=== PATIENT | female | born 1970 | race Hispanic/Latino ===

== ENCOUNTER → 2018-11-08 | Day surgery (SDC) | payer BC ==
[2018-11-06 16:19] LABS: BASOPHILS % 0.4 % (0.0-1.0); EOSINOPHILS # (AUTO) 0.1 (0.0-0.4); EOSINOPHILS % 1.1 % (0.0-6.0); HEMATOCRIT 43.3 % (34.2-44.1); HEMOGLOBIN 14.1 g/dL (12.0-16.0); LYMPHOCYTES # (AUTO) 1.8 (1.0-3.2); LYMPHOCYTES % 21.2 % (18.0-39.1); MEAN CORPUSCULAR HEMOGLOBIN 30.8 pg (28-32); MEAN CORPUSCULAR HGB CONC 32.6 g/dL (31-35); MEAN CORPUSCULAR VOLUME 94.5 fL (81-99); MONOCYTES # (AUTO) 0.5 (0.2-0.8); MONOCYTES % 6.3 % (4.4-11.3); NEUTROPHILS % 70.8 % (38.7-80.0); PLATELET COUNT 311 x10e3/uL (140-360); RED BLOOD COUNT 4.58 x10e6/uL (3.6-5.1); RED CELL DISTRIBUTION WIDTH 12.6 % (11.7-14.4)
--- NOTE | 2018-11-06 16:45 | Diagnostic Imaging Report ---
Frontal and lateral views of the chest. HISTORY: Preop, bilateral foot surgery COMPARISON: None available. DISCUSSION: Lungs: The lungs are well inflated. No evidence of a consolidative pneumonia or pulmonary alveolar edema. Pleura: No pleural effusion or pneumothorax. Heart and mediastinum: The cardiomediastinal silhouette appears unremarkable. Bones and soft tissues: Appear unremarkable. IMPRESSION: No acute radiographic abnormality. Signed by: Dr. Lucian Dave D.O., M.M.M. on 11/06/2018 4:41 PM
[~2018-11-08] MED LIST: BACITRACIN 50,000 UNIT VIAL ONE; BUPIVACAINE 0.25% 30ML SDV INJ ONE; DEXAMETHASONE SOD PHOS INJ 4 MG/ML VIAL ONE; FENTANYL CITRATE/PF 100MCG/2 ML INJ ONE; KETOROLAC TROMETHAMINE 30 MG/ML VIAL ONE; LIDOCAINE HCL 2% LOCAL INJ 5 ML SDV VIAL INJ ONE; MIDAZOLAM HCL 2 MG/2 ML VIAL ONE; MULTIVITAMINS1 EAC7 PO; MUPIROCIN 2% OINT 22 GM TUBE ONE; ONDANSETRON HCL INJ 2MG/ML 2ML 2 MG/ML VIAL ONE; PROPOFOL IV EMULSION 10 MG/ML 20 ML VIAL ONE; SEVOFLURANE INHAL SOLN 250 ML PEN BTL ONE; VANCOMYCIN 1GM/NS 250 ML 250 ML ONE; VESICARE5 MG PO
--- OUTSIDE RECORDS SUMMARY | 2018-11-08 05:04 | XMS REPORT | Continuity of Care Document ---
Demographics Preferred Language Unknown Marital Status Unknown Oriental Orthodox Affiliation Unknown Race Unknown Ethnic Group Unknown Author Author [facility] Organization Interface Address Unknown Phone Unavailable Problems Problem Status Onset Date Classification Date Reported Comments Source Z12.12 - ENCOUNTER FOR SCREENING FOR MA Active 09/13/2017 [facility] Final: Encounter for screening mammogram for malignant neoplasm of breast 09/25/2017 [facility] Medications Medication Details Route Status Patient Instructions Ordering Provider Order Date Source Allergies, Adverse Reactions, Alerts Substance Category Reaction Severity Reaction type Status Date Reported Comments Source Immunizations Immunization Date Given Site Status Last Updated Comments Source Results Order Name Results Value Reference Range Date Interpretation Comments Source Breast Mammo Scrn DIANA incl CAD MA Breast Mammo Scrn DIANA incl CAD MA BILATERAL DIGITAL SCREENING MAMMOGRAM WITH CAD: 09/22/2017 CLINICAL: /Screening. Current study was evaluated with a Computer Aided Detection (CAD) system. COMPARISON:Comparison is made to exams dated: 10/27/2015 ultrasound, 10/27/2015 mammogram, 08/15/2015 mammogram, 07/24/2014 mammogram, 07/26/2013 ultrasound, and 07/26/2013 mammogram - [facility]. TECHNIQUE: Mammographic views were obtained using digital acquisition. Current study was also evaluated with a Computer Aided Detection (CAD) system. FINDINGS: There are scattered fibroglandular densities in both breasts. There are benign calcifications in the right breast. There also are benign calcifications and intramammary nodes in the left breast. Additionally, there is a biopsy clip in the right breast. No significant masses, calcifications, or other findings are seen in either breast. There has been no significant interval change. IMPRESSION: BENIGN RECOMMENDATION:There is no mammographic evidence of malignancy. A 1 year screening mammogram is recommended.(09/23/2018) This exam was interpreted at [id number] for [facility]. Uche Mandujano M.D. bf/penrad:09/22/2017 15:13:52 Industrial Energy Engineer(s): Renata Ndiaye, [facility] letter sent: BI-RADS 1/2 Mammogram BI-RADS: 2 Benign 09/22/2017 - - Read by: Uche Mandujano MD Dictated Date/time: 09/22/17 15:13 Electronically Signed by: Uche Mandujano MD 09/22/17 15:13 FINAL REPORT [facility] Vital Signs Vital Sign Value Date Comments Source Encounters Location Location Details Encounter Type Encounter Number Reason For Visit Attending Provider ADM Date DC Date Status Source [facility] Outpatient Imaging - [facility] [id number] Non Physician 09/22/2017 09/23/2017 [facility] Jose [facility] Procedure Code Date Perfomer Comments Source
--- OUTSIDE RECORDS SUMMARY | 2018-11-08 05:04 | XMS REPORT | Summary of Care ---
Author Author [facility] Outpatient Imaging [facility] Outpatient [facility] Address Unknown Phone Unavailable Encounter HQ Esther(FIN) [id number] Date(s): 09/22/17 - 09/22/17 [facility] [address] [place] [address] [phone] Final: Encounter for screening mammogram for malignant neoplasm of breast Discharge Disposition: Home or Self Care Attending Physician: Physician, Non Associated MD Referring Physician: Physician, Non Associated MD Vital Signs No data available for this section Problem List No data available for this section Allergies, Adverse Reactions, Alerts No data available for this section Medications No data available for this section Results No data available for this section Immunizations No data available for this section Procedures No data available for this section Social History No data available for this section Assessment and Plan No data available for this section
--- OUTSIDE RECORDS SUMMARY | 2018-11-08 05:04 | XMS REPORT ---
Author Author [facility] Address Unknown Phone Unavailable Care Team Providers Care Vacuum Frame Operator Name Role Phone Hayley OLVERA Unavailable Unavailable Problems This patient has no known problems. Allergies, Adverse Reactions, Alerts This patient has no known allergies or adverse reactions. Medications This patient has no known medications. Results Test Description Test Time Test Comments Text Results Atomic Results Result Comments CHEST 2 VIEWS 2018-11-06 16:39:00 [place] [address] Patient Name: MICAH REYES MR #: [id number] : 1970 Age/Sex: 48/F Req #: [id number] Adm Physician: Ordered by: ROXANNA OLVERA DPM Report #: [id number] Location: OR Room/Bed: Procedure: [id number] DX/CHEST 2 VIEWS Exam Date: Exam Time: REPORT STATUS: Signed Frontal and lateral views of the chest. HISTORY: Preop, bilateral foot surgery COMPARISON: None available. DISCUSSION: Lungs: The lungs are well inflated. No evidence of a consolidative pneumonia or pulmonary alveolar edema. Pleura: No pleural effusion or pneumothorax. Heart and mediastinum: The cardiomediastinal silhouette appears unremarkable. Bones and soft tissues: Appear unremarkable. IMPRESSION: No acute radiographic abnormality. Signed by: Dr. Leah Dave D.O., M.M.M. on 11/06/2018 4:41 PM Dictated By: LEAH DAVE DO 164 Transcribed By: ZEE on 11/06/181640 COPY TO: ROXANNA OLVERA DPM
[2018-11-08 08:35] VITALS: BP 122/78
--- NOTE | 2018-11-08 08:49 | Operative Report ---
DATE OF PROCEDURE: November 08, 2018 PREOPERATIVE DIAGNOSES 1. Right painful hardware. 2. Left soft tissue mass. POSTOPERATIVE DIAGNOSES 1. Right painful hardware. 2. Left soft tissue mass. PLANNED PROCEDURES 1. Right hardware removal. 2. Left excision of soft tissue mass. MASTER ELECTRICIAN: Dr. Ronnie DPM ANESTHESIA: General with a postoperative block consisting of 10 mL of 0.5% Marcaine plain to the right and 10 mL of 0.5% Marcaine plain mixed with 1 mL of dexamethasone phosphate to the left. HEMOSTASIS: Pneumatic ankle tourniquet set at 250 mmHg for a total time of approximately 15 minutes to the right and approximately 22 minutes to the left. ESTIMATED BLOOD LOSS: Less than 10 mL. PATHOLOGY: Soft tissue mass sent for gross specimen. MATERIALS: 3-0 Vicryl, 4-0 Monocryl, Steri-Strips, Mastisol. DETAILS OF PROCEDURE: Patient was seen in the preoperative waiting where the correct procedure and site was identified. The patient was brought into the operating room and placed on the operating table in the supine position. General anesthesia was initiated at this time. A well-padded pneumatic tourniquet was placed about the patient's right ankle and the left thigh. Both lower extremities were scrubbed, prepped and draped in the usual aseptic manner. The right lower extremity was exsanguinated with the Esmarch bandage and the pneumatic ankle tourniquet was inflated to 250 mmHg for a total of approximately 10 minutes. Attention was directed to the dorsomedial aspect of the patient's right foot in the area of the previous 1st metatarsal bunion surgery. A 2 cm linear incision was made directly over the previous incision. The incision was carried down to the level of bone to allow for good visualization of both screws. Intraoperative fluoroscopy was used for triangulation. Attention was then directed to the 1st metatarsal head were the capsule was opened to allow for good visualization of the head of the screws. Next, utilizing a curette and dental pick, the bony overgrowth was removed from the head of the screw. Utilizing a screwdriver, both screws were removed. They appeared to be intact upon removal, and this was confirmed via intraoperative fluoroscopy. The wound was then flushed with copious amounts of sterile saline. Capsule and deep tissue were reapproximated with 3-0 Vicryl and skin was closed using a running subcuticular suture with 4-0 Monocryl. The incision site was then dressed with Adaptic, 4 x 4's, Kerlix, and Mateusz wrap. The tourniquet was then deflated. There was noted to be good vascular status. Attention was then directed to the left foot where there was a gravity exsanguination performed. The pneumatic thigh tourniquet was inflated for approximately 22 minutes at 350 mmHg. Attention was directed to the anterior ankle where a large approximately 3 cm x 3 cm soft tissue mass was noted. A 5 cm linear incision was made directly over the lesion. The incision was carried through subcutaneous tissues them from deeper underlying structures. All vital neurovascular structures were identified and retracted medially and laterally. All bleeders were cauterized or ligated as deemed necessary. A screw in the medial dorsal cutaneous nerve was encountered during the procedure and reflected medially, and was likely due to the pain from the ganglion cyst. The dissection was carried down deeper to allow for a multilobulated appearing ganglion cyst at the level of the talonavicular joint. This was excised and passed off the back table to be sent for gross specimen. The wound was then flushed with copious amounts of sterile saline. Capsule and deep tissue were left open to allow for no irritation to the nerve. Subcutaneous tissues were reapproximated with 3-0 Vicryl and the skin was closed using a running subcuticular suture with 4-0 Monocryl. The incision site was then dressed with Mastisol, Steri-Strips, Adaptic, 4 x 4's, Kerlix, Mateusz wrap, and a CAM walker boot. The patient tolerated the procedure and anesthesia well. Patient was transferred to the postoperative recovery with vital signs stable and vascular status intact. Patient was monitored there for a short period of time before being sent home with following written and oral instructions: 1. Keep the dressings clean, dry and intact. 2. The patient is to remain partial weightbearing to bilateral lower extremities with a postoperative shoe on the right and a CAM walker boot on the left. 3. Patient was instructed to call the office if any problems should arise. Job#: [id number] LILIAN
== END | disposition home or self-care (01) ==
LOC: OR 05:00
PROVIDERS: ATTEND Podiatrist Foot & Ankle Surgery
DX: M67.472 Ganglion, left ankle and foot (principal); T84.84XA Pain due to internal orthopedic prosthetic devices, implants and grafts, initial encounter; Y83.8 Other surgical procedures as the cause of abnormal reaction of the patient, or of later complication, without mention of misadventure at the time of the procedure; Z01.810 Encounter for preprocedural cardiovascular examination; Z01.812 Encounter for preprocedural laboratory examination; Z01.818 Encounter for other preprocedural examination
CPT/HCPCS: 20680; 28090; 36415; 71046; 81025; 85025; 88304; 93005; J1100; J1885; J2001; J2250; J2405; J2704; J3370